=== PATIENT | female | born 1970 | race Caucasian/White ===

== ENCOUNTER 2022-08-21 02:22 | Emergency (ER) | payer MEDICARE ==
--- NOTE | 2022-08-21 02:54 | ERPHSYRPT ---
- History of Present Illness Time Seen by Provider: 08/21/22 02:45 Source: patient, family Exam Limitations: no limitations Patient Subjective Stated Complaint: pt states she has been having shortness of breath. states she has been sick since yesterday, states she has a feeling of lightheadedness and dizziness today. states that her sats dropped when she was walking to the bathroom. states she has a slight cough Triage Nursing Assessment: pt is alert and oriented. pt was able to ambulate to room without assist, states she has no pain at this time. sats are 98% on room air Physician History: This is a 51-year-old obese white female who presents with shortness of air that came on less than 24 hours ago. Patient was fine, per her report, 2 days ago but yesterday began having some shortness of breath. She denies chest pain. She has a slight cough. She has no known exposures to individuals with viral illnesses. Later in the evening she started becoming mildly lightheaded and a little dizzy as well. Patient has no bleeding or clotting disorders. However, within the last year she has had colorectal cancer that she was operated on and started chemotherapy. Since her chemotherapy she tends to get respiratory illness rapidly. In fact, she states she had double pneumonia less than a year ago as well as COVID-19 infection. She has not traveled long distance recently. She has no calf pain. Again, she has no complaints of chest pain. She has had no hemoptysis. Patient states that her room air oxygenation level at home on her pulse ox monitor was 87%. However, upon arrival to the emergency department her room air oxygen saturation levels are 97 to 90%. Timing/Duration: yesterday Severity of Dyspnea-Max: moderate Severity of Dyspnea-Current: mild (To moderate) Possible Cause: occasional episodes Modifying Factors: Improves With: activity, coughing Associated Symptoms: cough (Slight), dizziness, No wheezing Allergies/Adverse Reactions: azithromycin [From Zithromax Z-Александр] Adverse Reaction (Verified 08/21/22 02:41) Hx Influenza Vaccination/Date Given: No Hx Pneumococcal Vaccination/Date Given: No Travel Risk - International Travel Have you traveled outside of the country in past 3 weeks: No - Coronavirus Screening Are you exhibiting any of the following symptoms?: Yes Symptoms: Shortness of Breath Close contact with a COVID-19 positive Pt in past 14-21 Days: No - Vaccine Status Have you recieved a Covid-19 vaccination: Yes [employer]: Moderna - Vaccination Dates Date of 2cond Vaccination (if applicable): unknown - Review of Systems Constitutional: No Symptoms Eyes: No Symptoms Ears, Nose, & Throat: No Symptoms Respiratory: Cough, Dyspnea Cardiac: No Symptoms Abdominal/Gastrointestinal: No Symptoms Genitourinary Symptoms: No Symptoms Musculoskeletal: No Symptoms Skin: No Symptoms Neurological: No Symptoms Psychological: No Symptoms Endocrine: No Symptoms Hematologic/Lymphatic: No Symptoms Immunological/Allergic: No Symptoms All Other Systems: Reviewed and Negative - Past Medical History Pertinent Past Medical History: Yes GI Medical History: Colorectal Cancer Other Medical History: back surgery in 2009, covid and pneumonia in 2020 - Past Surgical History Past Surgical History: Yes Other Surgical History: 2020, 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, endometriosis, port put in and removed - Social History Smoking Status: Never smoker Exposure to second hand smoke: No Drug Use: none Patient Lives Alone: No - Nursing Vital Signs Nursing Vital Signs: Initial Vital Signs Temperature 97.8 F 08/21/22 02:27 Pulse Rate 105 H 08/21/22 02:27 Respiratory Rate 20 08/21/22 02:27 O2 Sat by Pulse Oximetry 97 08/21/22 02:27 Pain Scale Pain Intensity 0 - Physical Exam General Appearance: no apparent distress, alert, anxiety, obese Eye Exam: PERRL/EOMI, post op pupil defect (L) Ears, Nose, Throat Exam: hearing grossly normal, normal ENT inspection, normal pharynx Neck Exam: normal inspection, non-tender, supple, full range of motion Respiratory Exam: airway intact, rhonchi (Mild left rhonchi), No chest tenderness, No respiratory distress, No accessory muscle use, No wheezing Cardiovascular/Chest Exam: normal heart sounds, regular rate/rhythm, normal peripheral pulses Abdominal/Gastrointestinal Exam: soft, normal bowel sounds, No tenderness Rectal Exam: not done Extremity Exam: non-tender, normal range of motion, normal inspection Neurologic Exam: alert, oriented x 3, cooperative, 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, normal mood/affect, nml cerebellar function, nml station & gait, sensation nml Skin Exam: normal color, warm, dry Lymphatic Exam: No adenopathy SpO2 Interpretation: normal SpO2: 97 O2 Delivery: Room Air - Course Nursing assessment & vital signs reviewed: Yes EKG Interpreted by Me: RATE (98), Sinus Rhythm, NORMAL AXIS, NORMAL INTERVALS, NORMAL QRS, NORMAL ST-T, Other (No acute ischemic changes on today's EKG.) Ordered Tests: Active Orders 24 hr Category Date Time Status EKG-ER Only STAT Care 08/21/22 03:03 Active IV Insertion STAT Care 08/21/22 03:03 Active Re-Check Vital Signs STAT Care 08/21/22 03:03 Active CHEST 1 VIEW (PORTABLE) Stat Exams 08/21/22 02:48 Taken BLOOD CULTURE Stat Lab 08/21/22 03:12 Received CBC W DIFF Stat Lab 08/21/22 03:25 Completed CMP Stat Lab 08/21/22 03:25 Completed D-DIMER QUANTITATIVE Stat Lab 08/21/22 03:25 Completed [place] Screen Stat Lab 08/21/22 03:25 Completed NT PRO BNP Stat Lab 08/21/22 03:25 Completed TROPONIN Q4H Lab 08/21/22 03:25 Completed TROPONIN Q4H Lab 08/21/22 07:15 Ordered TROPONIN Q4H Lab 08/21/22 11:15 Ordered Respiratory Therapy Assessment DAILY RT 08/21/22 03:21 Active Medication Summary Generic Name Dose Route Start Last Admin Trade Name Freq PRN Reason Stop Dose Admin Ceftriaxone Sodium/Dextrose 1 g in 50 mls @ 100 mls/hr 08/21/22 04:05 Rocephin 1 Gm-D5w 50 Ml Bag IV 08/21/22 04:34 STAT STA Oseltamivir Phosphate 75 mg 08/21/22 10:00 08/21/22 03:44 Oseltamivir 75 Mg Cap PO 08/26/22 09:59 75 mg BID STEFFANIE Administration Discontinued Medications Generic Name Dose Route Start Last Admin Trade Name Freq PRN Reason Stop Dose Admin Albuterol Sulfate 2.5 mg 08/21/22 03:03 08/21/22 03:20 Albuterol Sulfate 2.5 Mg/3 Ml Neb IH 08/21/22 03:04 2.5 mg STAT ONE Administration Albuterol Sulfate Confirm 08/21/22 03:06 Albuterol Sulfate 2.5 Mg/3 Ml Neb Administered 08/21/22 03:07 Dose 2.5 mg IH .STK-MED ONE Methylprednisolone Sodium 0 mg 08/21/22 03:04 08/21/22 03:27 Succinate 125 mg/ Sterile IV 08/21/22 03:05 125 mg Water 2 ml STAT ONE Administration Methylprednisolone Sodium Succinate Confirm 08/21/22 03:27 Methylprednis Sod Succ 125 Mg/2 Ml Vial Administered 08/21/22 03:28 Dose 125 mg .ROUTE .STK-MED ONE Sterile Water Confirm 08/21/22 03:27 Water For Injection,Sterile 10 Ml Vial Administered 08/21/22 03:28 Dose 10 ml IJ .STK-MED ONE Lab/Rad Data: Laboratory Result Diagrams 08/21/22 03:25 08/21/22 03:25 Laboratory Results 08/21/22 08/21/22 08/21/22 Range/Units 03:25 03:25 03:25 WBC (4.0-10.5) x10^3/uL RBC (4.1-5.4) x10^6/uL Hgb (12.0-16.0) g/dL Hct (35-47) % MCV (78-100) fL MCH (26-32) pg MCHC (32-36) g/dL RDW (11.5-14.0) % Plt Count (150-450) x10^3/uL MPV (7.5-11.0) fL Gran % (36.0-66.0) % Immature Gran % (Auto) (0.00-0.4) % Nucleat RBC Rel Count (0.00-0.1) % Eos # (Auto) (0-0.5) x10^3/uL Immature Gran # (Auto) (0.00-0.03) x10^3u/L Absolute Lymphs (auto) (1.0-4.6) x10^3/uL Absolute Monos (auto) (0.0-1.3) x10^3/uL Absolute Nucleated RBC (0.00-0.01) x10^3u/L Lymphocytes % (24.0-44.0) % Monocytes % (0.0-12.0) % Eosinophils % (0.00-5.0) % Basophils % (0.0-0.4) % Absolute Granulocytes (1.4-6.9) x10^3/uL Basophils # (0-0.4) x10^3/uL D-Dimer 0.55 H (0.0-0.50) mg/L Sodium (137-145) mmol/L Potassium (3.5-5.1) mmol/L Chloride (98-107) mmol/L Carbon Dioxide (22-30) mmol/L Anion Gap (5-15) MEQ/L BUN (7-17) mg/dL Creatinine (0.52-1.04) mg/dL Estimated GFR ML/MIN Glucose (74-106) mg/dL Calcium (8.4-10.2) mg/dL Total Bilirubin (0.2-1.3) mg/dL AST (14-36) U/L ALT (0-35) U/L Alkaline Phosphatase (38-126) U/L Troponin I < 0.012 (0.000-0.034) ng/mL NT-Pro-B Natriuret Pep (0-900) pg/mL Serum Total Protein (6.3-8.2) g/dL Albumin (3.5-5.0) g/dL Monoscreen NEGATIVE (Negative) Influenza Type A Ag (NEGATIVE) Influenza Type B Ag (NEGATIVE) RSV (PCR) (Negative) SARS-CoV-2 (PCR) (NEGATIVE) Group A Strep Antibody (NEGATIVE) 08/21/22 08/21/22 08/21/22 Range/Units 03:25 03:25 03:00 WBC 6.2 (4.0-10.5) x10^3/uL RBC 4.36 (4.1-5.4) x10^6/uL Hgb 12.7 (12.0-16.0) g/dL Hct 37.5 (35-47) % MCV 86.0 (78-100) fL MCH 29.1 (26-32) pg MCHC 33.9 (32-36) g/dL RDW 13.2 (11.5-14.0) % Plt Count 190 (150-450) x10^3/uL MPV 10.5 (7.5-11.0) fL Gran % 75.1 H (36.0-66.0) % Immature Gran % (Auto) 1.0 H (0.00-0.4) % Nucleat RBC Rel Count 0.0 (0.00-0.1) % Eos # (Auto) 0.26 (0-0.5) x10^3/uL Immature Gran # (Auto) 0.06 H (0.00-0.03) x10^3u/L Absolute Lymphs (auto) 0.57 L (1.0-4.6) x10^3/uL Absolute Monos (auto) 0.58 (0.0-1.3) x10^3/uL Absolute Nucleated RBC 0.00 (0.00-0.01) x10^3u/L Lymphocytes % 9.3 L (24.0-44.0) % Monocytes % 9.4 (0.0-12.0) % Eosinophils % 4.2 (0.00-5.0) % Basophils % 1.0 (0.0-0.4) % Absolute Granulocytes 4.63 (1.4-6.9) x10^3/uL Basophils # 0.06 (0-0.4) x10^3/uL D-Dimer (0.0-0.50) mg/L Sodium 133 L (137-145) mmol/L Potassium 4.4 (3.5-5.1) mmol/L Chloride 103 (98-107) mmol/L Carbon Dioxide 22 (22-30) mmol/L Anion Gap 13.4 (5-15) MEQ/L BUN 9 (7-17) mg/dL Creatinine 0.73 (0.52-1.04) mg/dL Estimated GFR > 60.0 ML/MIN Glucose 102 (74-106) mg/dL Calcium 9.1 (8.4-10.2) mg/dL Total Bilirubin 0.80 (0.2-1.3) mg/dL AST 61 H (14-36) U/L ALT 42 H (0-35) U/L Alkaline Phosphatase 75 (38-126) U/L Troponin I (0.000-0.034) ng/mL NT-Pro-B Natriuret Pep 193 (0-900) pg/mL Serum Total Protein 8.0 (6.3-8.2) g/dL Albumin 4.3 (3.5-5.0) g/dL Monoscreen (Negative) Influenza Type A Ag (NEGATIVE) Influenza Type B Ag (NEGATIVE) RSV (PCR) (Negative) SARS-CoV-2 (PCR) (NEGATIVE) Group A Strep Antibody NOT DETECTED (NEGATIVE) 08/21/22 Range/Units 03:00 WBC (4.0-10.5) x10^3/uL RBC (4.1-5.4) x10^6/uL Hgb (12.0-16.0) g/dL Hct (35-47) % MCV (78-100) fL MCH (26-32) pg MCHC (32-36) g/dL RDW (11.5-14.0) % Plt Count (150-450) x10^3/uL MPV (7.5-11.0) fL Gran % (36.0-66.0) % Immature Gran % (Auto) (0.00-0.4) % Nucleat RBC Rel Count (0.00-0.1) % Eos # (Auto) (0-0.5) x10^3/uL Immature Gran # (Auto) (0.00-0.03) x10^3u/L Absolute Lymphs (auto) (1.0-4.6) x10^3/uL Absolute Monos (auto) (0.0-1.3) x10^3/uL Absolute Nucleated RBC (0.00-0.01) x10^3u/L Lymphocytes % (24.0-44.0) % Monocytes % (0.0-12.0) % Eosinophils % (0.00-5.0) % Basophils % (0.0-0.4) % Absolute Granulocytes (1.4-6.9) x10^3/uL Basophils # (0-0.4) x10^3/uL D-Dimer (0.0-0.50) mg/L Sodium (137-145) mmol/L Potassium (3.5-5.1) mmol/L Chloride (98-107) mmol/L Carbon Dioxide (22-30) mmol/L Anion Gap (5-15) MEQ/L BUN (7-17) mg/dL Creatinine (0.52-1.04) mg/dL Estimated GFR ML/MIN Glucose (74-106) mg/dL Calcium (8.4-10.2) mg/dL Total Bilirubin (0.2-1.3) mg/dL AST (14-36) U/L ALT (0-35) U/L Alkaline Phosphatase (38-126) U/L Troponin I (0.000-0.034) ng/mL NT-Pro-B Natriuret Pep (0-900) pg/mL Serum Total Protein (6.3-8.2) g/dL Albumin (3.5-5.0) g/dL Monoscreen (Negative) Influenza Type A Ag POSITIVE (NEGATIVE) Influenza Type B Ag NEGATIVE (NEGATIVE) RSV (PCR) NEGATIVE (Negative) SARS-CoV-2 (PCR) NEGATIVE (NEGATIVE) Group A Strep Antibody (NEGATIVE) - Progress Progress: improved Air Movement: good Progress Note: 08/21/22 03:38 Chest x-ray shows bibasilar infiltrate versus bibasilar atelectasis Blood Culture(s) Obtained: Yes Counseled pt/family regarding: lab results, diagnosis, need for follow-up, rad results - Departure Departure Disposition: Home Clinical Impression: Influenza A H1N1 infection, Infiltrate of lung present on chest x-ray Condition: Stable Critical Care Time: No Referrals: SAMAN DEE FNP [Primary Care Provider] - Follow up/PCP as directed Additional Instructions: Drink plenty fluids. Take your medication as prescribed. Follow-up with your primary care provider for further evaluation management. Prescriptions: Cefdinir 300 mg PO BID #14 cap Prednisone 10 mg [Deltasone 10 mg] 10 mg PO TID #12 tablet Oseltamivir 75 mg [Tamiflu 75MG Capsule] 75 mg PO BID #10 cap
[2022-08-21] MEDS ORDERED: PROVENTIL 2.5 MG/3 ML NEB IH ONE ×2 (03:03→03:06)
[2022-08-21] MEDS ORDERED: solu-MEDROL 125 MG, Sterile H2O 10 ml 2 ML IV ONE ×2 (03:04)
[2022-08-21 03:27] LABS: Absolute Neutrophil Ct (ANC) 4.63 x10^3/uL (1.4-6.9); Basophil (Absolute #) 0.06 x10^3/uL (0-0.4); Eosinophil % 4.2 % (0.00-5.0); Eosinophil (Absolute #) 0.26 x10^3/uL (0-0.5); Hematocrit 37.5 % (35-47); Hemoglobin 12.7 g/dL (12.0-16.0); Lymphocyte (Absolute #) 0.57 x10^3/uL (1.0-4.6); Lymphocytes % 9.3 % (24.0-44.0); Mean Corpuscular Hemoglobin 29.1 pg (26-32); Mean Corpuscular Hgb Concent. 33.9 g/dL (32-36); Mean Platelet Volume 10.5 fL (7.5-11.0); Monocyte (Absolute #) 0.58 x10^3/uL (0.0-1.3); Monocytes % 9.4 % (0.0-12.0); Neutrophil % 75.1 % (36.0-66.0); Platelet Count 190 x10^3/uL (150-450); Red Blood Count 4.36 x10^6/uL (4.1-5.4); Red Cell Distribution Width 13.2 % (11.5-14.0); White Blood Count 6.2 x10^3/uL (4.0-10.5)
[2022-08-21] MEDS ORDERED: solu-MEDROL ONE (03:27)
[2022-08-21] MEDS ORDERED: Sterile H2O 10 ml IJ ONE (03:27)
[2022-08-21 03:33] LABS: INFLUENZA B NEGATIVE (NEGATIVE); RESPIRATORY SYNCTIAL VIRUS NEGATIVE (Negative); SARS-CoV-2 Xpert Express NEGATIVE (NEGATIVE)
[2022-08-21 03:40] LABS: INFLUENZA A POSITIVE (NEGATIVE)
[2022-08-21] MEDS ORDERED: Tamiflu 75MG Capsule PO ONE (03:43)
[2022-08-21 03:50] LABS: ALBUMIN 4.3 g/dL (3.5-5.0); ALKALINE PHOSPHATASE 75 U/L (38-126); ANION GAP 13.4 MEQ/L (5-15); BLOOD UREA NITROGEN 9 mg/dL (7-17); CHLORIDE 103 mmol/L (98-107); Calcium 9.1 mg/dL (8.4-10.2); Carbon Dioxide 22 mmol/L (22-30); Creatinine 1 0.73 mg/dL (0.52-1.04); EST GLOMERULAR FILTRATION RATE > 60.0 ML/MIN; Glucose 102 mg/dL (74-106); NT PRO BNP 193 pg/mL (0-900); Potassium 4.4 mmol/L (3.5-5.1); SGOT/AST 61 U/L (14-36); SGPT/ALT 42 U/L (0-35); SODIUM 133 mmol/L (137-145)
[2022-08-21] MEDS ORDERED: ROCEPHIN 1 Gm-D5w 50 ml Bag** 1 G/50 ML IVPB IV STA (04:05)
[2022-08-21 04:19] LABS: Slide Review 1 YES
[2022-08-21] MEDS ORDERED: ROCEPHIN 1 Gm-D5w 50 ml Bag** 1 G/50 ML IVPB IV ONE (04:21)
[2022-08-21 05:11] VITALS: BP 158/87; PULSE 102; O2SAT 98
--- NOTE | 2022-08-21 07:55 | XRAY ---
Indication: Cough and short of breath. Comparison: None Portable chest demonstrates normal heart, lungs, and bony thorax.
[2022-08-21] MEDS ORDERED: Tamiflu 75MG Capsule PO SCH (10:00)
== END 2022-08-21 05:11 | disposition home or self-care (01) ==
LOC: ED 02:22
DX: J10.1 Influenza due to other identified influenza virus with other respiratory manifestations (principal); R91.8 Other nonspecific abnormal finding of lung field; R06.02 Shortness of breath; R05.9 Cough, unspecified; R42 Dizziness and giddiness; Z86.16 Personal history of COVID-19; Z79.52 Long term (current) use of systemic steroids
CPT/HCPCS: 0241U; 36000; 36415; 71045; 80053; 83880; 84484; 85025; 85379; 86308; 87040; 87651; 93005; 94640; 96365; 96374; 99284; J0696; J2930; J7609; A9270-GY